=== PATIENT | female | born 1950 | race Caucasian/White ===

== ENCOUNTER → 2024-03-29 12:17 | Outpatient (REF) | payer MEDICARE, SELFPAY | LOC: HWRAD 12:17 | PROVIDERS: ATTENDING PHYSICIAN Student in an Organized Health Care Education/Training Program; FAMILY PHYSICIAN Family Medicine | DX: M79.672 Pain in left foot (principal) | CPT/HCPCS: 73700 ==

== ENCOUNTER → 2024-07-05 13:32 | Outpatient (REF) | payer MEDICARE, SELFPAY | LOC: RCS 13:32 | PROVIDERS: ATTENDING PHYSICIAN Family Medicine | DX: R06.02 Shortness of breath (principal) | CPT/HCPCS: 93005; 93306 ==

== ENCOUNTER → 2024-07-12 08:31 | Outpatient (REF) | payer MEDICARE, SELFPAY | LOC: RSP 08:31 | PROVIDERS: ATTENDING PHYSICIAN Family Medicine | DX: R06.02 Shortness of breath (principal) | CPT/HCPCS: 94727; 94729; 94060 ==

== ENCOUNTER 2024-11-19 07:19 | Emergency (ER) | payer MEDICARE, SELFPAY ==
[2024-11-19 07:31] VITALS: BP 149/75
--- NOTE | 2024-11-19 08:01 | ED.GENMED ---
History of Present Illness
General
Chief Complaint: Abdominal Pain
Source: patient
Exam Limitations: none
Time Seen by Provider: 11/19/24 07:49
History of Present Illness
History of Present Illness:
74-year-old female presents with abdominal discomfort and distention over the past 2 months. She has tried Prilosec over that time over a month time without any relief. She is seen by family doctor couple times and was scheduled for CT scan which
is a week from today. The pain has worsened. The pain is not pleuritic. Does not made worse with eating it is a constant pain and discomfort to both sides that radiates to the front. She is on MS Contin for her chronic back pain. She is moving
her bowels. No urinary symptoms. No vomiting chest pain or shortness of breath. No other complaints at this time
Past History
Past History
ED Past Medical History: Other (Chronic low back pain, lumbar DJD, chronic narcotic dependent) and Other (Migraine headaches)
ED Past Surgical History: Appendectomy, Gynecological (Tubal ligation) and Orthopedic (Lumbar surgeries 1999, 2000, 2006)
Social History
Tobacco: Non-smoker
Alcohol: None
Personal:
Living: with family
Employment: Retired
Family History
Family History: Other (Noncontributory)
Phy Exam
Physical Exam
Physical Exam:
General: Well-appearing female no acute respiratory distress
HEENT: Normocephalic atraumatic sclera anicteric neck is supple
Heart: Regular rate and rhythm no murmurs lungs: Clear no wheeze
Abdomen dorsalis soft slightly distended tender in the upper abdomen and epigastric area. Mild bilateral flank tenderness no lower quadrant tenderness normal bowel sounds
Extremities: No cyanosis or edema
Skin: Warm no rash
Course
Orders/Labs/Results
Orders:
Orders
11/19/24 08:00
CT Abd/pel W Iv And Oral Contr Urgent
Comment:
Reason For Exam: abdominal pain
Iohexol [Omnipaque] See Protocol PO NOW STA
11/19/24 08:02
Electrocardiogram (*1) Urgent
Reason for Study: Abdominal Pain
EKG- Treatment ONCE
11/19/24 08:39
Complete Blood Count/With Diff Urgent
Comprehensive Metabolic Panel Urgent
Lipase Urgent
Troponin I Urgent
11/19/24 10:16
Urinalysis Reflex To Culture Urgent
Date Specimen was Collected: 11/19/24
Time Specimen was Collected: 09:54
Abnormal Lab Results
11/19/24
08:39
MCHC 31.9 L g/dL
(33.0-37.0)
MPV 10.5 H fL
(7.4-10.4)
Glucose 102 H mg/dl
(70-99)
11/19/24 08:39
11/19/24 08:39
Vital Signs
Initial and Last Documented VS:
Initial Vital Signs
Pulse Resp BP Pulse Ox
67 18 149/75 97
11/19/24 07:31 11/19/24 07:31 11/19/24 07:31 11/19/24 07:31
Last Documented Vital Signs
Pulse Resp BP Pulse Ox
66 12 152/79 96
11/19/24 08:24 11/19/24 08:24 11/19/24 08:23 11/19/24 08:25
MDM/Problems Addressed
Differential Diagnosis Includes:
Upper abdominal and bilateral flank pain. Consider gastritis versus constipation versus bowel obstruction. She has had surgeries on her back but they have gone through her abdomen. No prior history of cholecystectomy. Symptoms have been
unrelieved with PPIs at home. Will check lipase to evaluate for pancreatitis.
Patient had an order for CT of her abdomen pelvis with oral and IV contrast this is to be performed in a week however will obtain a CT today as well as EKG and troponin.
*Critical Care Note
Total Time (30-74mins, 75-104mins- exclusive of procedures): Not Applicable
Update Note
Update Note:
Workup here essentially unremarkable with blood work CT scan and urinalysis. Patient has ongoing pain over the past 2 months but worsening. No acute indication for admission. Will contact GI team for rapid follow-up. Stable for discharge
otherwise
ED Attending Note
-
Portions of this chart may have been created with voice recognition software.� Occasional wrong word or��sound alike� substitutions may have occurred due to the inherent limitations of voice recognition software.
Discharge Plan
Departure
Patient Disposition: Home (Routine Discharge)
Date of Disposition: 11/19/24
Time of Disposition: 11:14
Patient with high blood pressure during this ER visit?: No
Discharge Problem:
Abdominal pain
Instructions: Abdominal Pain
Prescriptions:
No Action
morphine [MS Contin] 15 MG tablet extended release
15 mg PO BID
naproxen 500 MG tablet
500 mg PO PRN PRN (Reason: pain)
[place] 7.5/325:
1 tab PO TID
Referrals:
Teresa Pinto MD [Family Provider] -
Shayna Huertas MD [Active] -
Activity Restrictions/Additional Instructions:
Please return here for worsening symptoms. The GI team should call you to set up an appointment
Interventions
Interventions:
*Risk Screen - Suicide Last Done: 11/19/24 07:31
*General Assessment Last Done: 11/19/24 07:31
*Neglect/Abuse Screening Last Done: 11/19/24 07:31
ED- Fall Risk Assessment Last Done: 11/19/24 08:25
*ED COVID-19 Vaccine History Last Done: 11/19/24 08:25
[facility]-Ohuxmldk[facility] Assessment Last Done: 11/19/24 08:25
Discharge Date and Time
Print Language: NEPALESE
[2024-11-19 08:23] VITALS: BP 152/79
[2024-11-19 08:25] VITALS: BMI 29.1
[2024-11-19] MEDS: OMNIPAQUE 50 ML PO (08:30)
[2024-11-19 08:57] LABS: % Basophils 1.5 % (0-2); % Eosinophils 3.6 % (0-6); % Immature Granulocytes 0.4 % (0-0.5); % Lymphocytes 23.6 % (20.5-51.1); % Monocytes 8.9 % (1.7-9.3); Absolute Basophils 0.1 10^3/uL (0-0.2); Absolute Eosinophils 0.3 10^3/uL (0-0.7); Absolute Lymphocytes 1.7 10^3/uL (1.2-3.4); Absolute Monocytes 0.6 10^3/uL (0.1-0.6); Absolute Neutrophils 4.5 10^3/uL (1.4-6.5); Hemoglobin 13.4 g/dL (12.0-16.0); Mean Corp Hgb Conc. 31.9 g/dL (33.0-37.0); Mean Corpuscular Hgb 28.6 pg (27.0-31.0); Mean Corpuscular Volume 89.7 fL (81.0-99.0); Mean Platelet Volume 10.5 fL (7.4-10.4); Nucleated Red Blood Cells % 0 %; Platelet Count 326 10^3/uL (130-400); Red Blood Cell Count 4.68 10^6/uL (4.20-5.40); Red Cell Dist. Width 13.2 % (11.5-14.5); White Blood Cell Count 7.2 10^3/uL (4.8-10.8)
[2024-11-19 09:03] LABS: ALT (SGPT) 22 U/L (0-35); AST (SGOT) 22 U/L (14-36); Albumin 4.2 g/dl (3.5-5.0); Alkaline Phosphatase 82 U/L (38-126); Blood Urea Nitrogen 17 mg/dl (7-17); Calcium 9.7 mg/dl (8.4-10.2); Carbon Dioxide 27 mmol/L (22-30); Chloride 106 mmol/L (98-107); Estimated Creatinine Clearance 77 ml/min; Glucose 102 mg/dl (70-99); Lipase 57 U/L (23-300); Potassium 4.4 mmol/L (3.5-5.1); Sodium 142 mmol/L (135-145); Total Bilirubin 0.4 mg/dl (0.2-1.3); eGFR > 60.00
[2024-11-19 09:14] LABS: Troponin I < 0.012 ng/ml
[2024-11-19 10:34] LABS: Urine Albumin Negative (Neg - Trace); Urine Bilirubin Negative (Negative); Urine Character Clear (Clear); Urine Color Straw; Urine Glucose Negative (Negative); Urine Ketone Negative (Negative); Urine Leukocyte Negative (Negative); Urine Nitrite Negative (Negative); Urine Occult Blood Negative (Negative); Urine Specific Gravity 1.015 (<1.030); Urine Urobilinogen Negative (Neg - 1+)
== END 2024-11-19 11:31 | disposition home or self-care (01) ==
LOC: EMR 07:19
PROVIDERS: Physician Assistant; EMERGENCY PHYSICIAN Emergency Medicine; FAMILY PHYSICIAN Family Medicine
DX: R10.9 Unspecified abdominal pain (principal); Z90.49 Acquired absence of other specified parts of digestive tract; G89.29 Other chronic pain; M54.50 Low back pain, unspecified
CPT/HCPCS: 99284; 74177; 80053; 81003; 83690; 84484; 85025; 93005; Q9967

== ENCOUNTER → 2024-11-30 18:45 | Outpatient (REF) | payer MEDICARE, SELFPAY | LOC: MRI 18:45 | PROVIDERS: ATTENDING PHYSICIAN Family Medicine | DX: M54.16 Radiculopathy, lumbar region (principal) | CPT/HCPCS: 72148 ==

== ENCOUNTER 2024-12-12 08:14 | Inpatient (IN) | payer MEDICARE, SELFPAY ==
[2024-12-10 09:34] VITALS: BP 202/104
[2024-12-10 10:03] LABS: % Basophils 1.4 % (0-2); % Eosinophils 3.1 % (0-6); % Immature Granulocytes 0.2 % (0-0.5); % Lymphocytes 22.9 % (20.5-51.1); % Monocytes 8.2 % (1.7-9.3); % Neutrophils 64.2 % (42.2-75.2); Absolute Basophils 0.1 10^3/uL (0-0.2); Absolute Eosinophils 0.2 10^3/uL (0-0.7); Absolute Lymphocytes 1.5 10^3/uL (1.2-3.4); Absolute Monocytes 0.5 10^3/uL (0.1-0.6); Absolute Neutrophils 4.1 10^3/uL (1.4-6.5); Hematocrit 41.1 % (37.0-47.0); Hemoglobin 13.4 g/dL (12.0-16.0); Mean Corp Hgb Conc. 32.6 g/dL (33.0-37.0); Mean Corpuscular Hgb 28.9 pg (27.0-31.0); Mean Corpuscular Volume 88.6 fL (81.0-99.0); Mean Platelet Volume 10.2 fL (7.4-10.4); Nucleated Red Blood Cells % 0 %; Platelet Count 309 10^3/uL (130-400); Red Blood Cell Count 4.64 10^6/uL (4.20-5.40); Red Cell Dist. Width 13.2 % (11.5-14.5); White Blood Cell Count 6.4 10^3/uL (4.8-10.8)
[2024-12-10 10:12] LABS: ALT (SGPT) 16 U/L (0-35); AST (SGOT) 21 U/L (14-36); Albumin 4.3 g/dl (3.5-5.0); Alkaline Phosphatase 86 U/L (38-126); Blood Urea Nitrogen 16 mg/dl (7-17); Calcium 9.6 mg/dl (8.4-10.2); Carbon Dioxide 26 mmol/L (22-30); Chloride 106 mmol/L (98-107); Glucose 106 mg/dl (70-99); Lipase 72 U/L (23-300); Potassium 4.2 mmol/L (3.5-5.1); Sodium 141 mmol/L (135-145); Total Bilirubin 0.5 mg/dl (0.2-1.3); Total Protein 6.9 g/dl (6.3-8.2); eGFR > 60.00
[2024-12-10 11:01] VITALS: BMI 27.3
[2024-12-10 11:07] VITALS: BP 166/76
--- NOTE | 2024-12-10 14:23 | ED.GENMED ---
History of Present Illness
General
Chief Complaint: Abdominal Pain
Source: patient, records and spouse
Time Seen by Provider: 12/10/24 11:53
History of Present Illness
History of Present Illness:
74-year-old female with past medical history of chronic back pain presenting to the emergency department for evaluation of right flank/upper abdominal pain that has been ongoing and worsening over the last 3 months stating that she has been to this
emergency department as well as followed up with her primary care provider and GI but has not had any findings that would explain her pain and notes that she has had continued and worsening symptoms noting a relatively constant pain, or radiates
across the upper part of her abdomen, intermittently worse with eating and notes that she has had some loose stool and intermittent episodes of fecal incontinence. She does state her stool was black in color a couple of days ago but has not noticed
any blood. No fevers or infectious symptoms. Following her last visit to the ER here a little less than a month ago patient followed up with GI who she states told her they did not feel it was likely GI related and more likely related to her back
pain but patient notes she did receive a lumbar spine MRI with her primary care provider which only showed the degenerative changes. Patient does take chronic MS Contin due to her back pain but notes no changes to this medication recently. No
other concerns
Past History
Past History
ED Past Medical History: Other (Chronic low back pain, lumbar DJD, chronic narcotic dependent) and Other (Migraine headaches)
ED Past Surgical History: Appendectomy, Gynecological (Tubal ligation) and Orthopedic (Lumbar surgeries 1999, 2000, 2006)
Social History
Tobacco: Non-smoker
Alcohol: None
Drug: None
Personal:
Living: with family
Employment: Retired
Family History
Family History: Other (Noncontributory)
Review of Systems
Review of Systems
All Other Systems: ROS reviewed and negative except as documented in HPI and ROS
Phy Exam
Physical Exam
Physical Exam:
GENERAL: Alert , in no apparent distress, Tearful and upset
EYE: clear conjunctiva b/l
HEAD: NCAT
ENT: mmm.
CARDIAC: Regular rate and rhythm .
LUNGS: Clear breath sounds bilaterally, no acute respiratory distress, no wheezes/rales/rhonchi
ABDOMEN: Soft, RUQ pain across the upper abdomen, no r/g, no cvat,
NEUROLOGICAL: Alert and oriented
SKIN: Warm and dry, skin intact.
MUSCULOSKELETAL: well perfused.
PSYCH: Normal and appropriate interaction.
Scores
Heart Failure Risk
Heart Failure Risk Score: Not Applicable
Heart Score for Chest Pain Patients
STEMI patient?: Not applicable
Withdrawal Assessment of Alcohol
Withdrawal Assessment Completed?: Not applicable
Course
Orders/Labs/Results
Orders:
Orders
12/10/24 Breakfast
Clear Liquid
At Your Request: Limited Participation
12/10/24 09:50
Complete Blood Count/With Diff Urgent
Comprehensive Metabolic Panel Urgent
Lipase Urgent
12/10/24 13:22
US Abdomen Complete/Upper Urgent
Comment:
Reason For Exam: RUQ abd pain/epigastric abd pain
12/10/24 15:24
Mag Hydrox/Al Hydrox/Simeth [Maalox] 30 ml Phenobarb/Hyoscy/Atropine/Scop [] 10 ml Viscous Lidocaine 2% [Xylocaine Viscous Cup] 10 ml PO NOW
Pantoprazole [Protonix IV] 40 mg IV NOW STA
12/10/24 15:33
GASTROINTESTINAL CONSULT Routine
Consulting Provider: Ariela Iqbal
Was physician already notified: Yes
Reason for consult: abd pain
12/10/24 15:41
Mag Hydrox/Al Hydrox/Simeth [Maalox] 30 ml .ROUTE .STK-MED ONE
Phenobarb/Hyoscy/Atropine/Scop [] 10 ml .ROUTE .STK-MED ONE
Viscous Lidocaine 2% [Xylocaine Viscous Cup] 15 ml .ROUTE .STK-MED ONE
12/10/24 16:01
Admit/Transfer Patient As Directed
Co-Sign Provider:
Level of Care: Observation services
Assign to:: Medical/Surgical
Physician / Group: Kwadwo
Diagnosis: Abdominal Pain
PRN Pain Medication Management As Directed
May give lesser potent ordered pain med per pt: Yes
preference::
Protocol:: Medication orders for pain may be administered in a
manner that supports deferring to patient preference
when the pt is:
- Requesting an ordered lesser potent pain medication.
Least to most potent pain medications are defined
as: acetaminophen < NSAID < tramadol < opioids
(morphine, oxycodone, hydromorphone).
- Requesting a lesser dose of the same medication IF
ORDERED.
- Requesting a less intrusive route of administration
if both routes are prescribed by the provider (PO <
IV).
12/10/24 16:02
Code Status As Directed
Resuscitation Status: Full Code
12/10/24 17:12
Acetaminophen [Tylenol] 650 mg PO Q4HPRN PRN
HYDROmorphone [Dilaudid] 0.25 mg IV Q3HPRN PRN
Hydrocodone 5/APAP 325 [[place] 5/325] 1 tablet PO Q4HPRN PRN
Ondansetron Injectable [Zofran] 4 mg IV Q6HPRN PRN
12/10/24 17:12
Activity As Directed
Activity Level: Out of Bed-Early Mobility
With Assistance
Hemetest Stools As Directed
Comment: Notify Physician of any positive results; May Stop if Negative x 3
Pneumatic Compression Sleeves As Directed
Type: Knee high
Vital Signs As Directed
Frequency: Per unit guidelines
DX Deep Vein Thrombosis Video Routine
12/10/24 20:00
Lisinopril [Zestril] 10 mg PO BID
Morphine Sulfate Extended Rel. [Ms Contin (Extended Release)] 15 mg PO Q12
12/11/24 06:49
Basic Metabolic Panel IN AM
Complete Blood Count/No Diff IN AM
Magnesium IN AM
12/11/24 08:00
Pantoprazole [Protonix IV] 40 mg IV Q12
Abnormal Lab Results
12/10/24
09:50
MCHC 32.6 L g/dL
(33.0-37.0)
Glucose 106 H mg/dl
(70-99)
12/10/24 09:50
12/10/24 09:50
Vital Signs
Initial and Last Documented VS:
Initial Vital Signs
Pulse Resp BP Pulse Ox
71 18 202/104 98
12/10/24 09:34 12/10/24 09:34 12/10/24 09:34 12/10/24 09:34
Last Documented Vital Signs
Temp Pulse Resp BP Pulse Ox
98.1 F 82 20 107/59 97
12/11/24 15:00 12/11/24 15:00 12/11/24 15:00 12/11/24 15:00 12/11/24 15:00
MDM/Problems Addressed
Differential Diagnosis Includes:
GERD, gastritis, biliary colic, renal colic, PE considered however no chest pain, SOB, pleurisy. Exacerbation of chronic pain
MDM/Problems Addressed:
74-year-old female presenting to the emergency department for evaluation of continued upper abdominal pain without any specific etiologies. Symptoms been ongoing for approximately 3 months. She has had CT imaging, MRI, labs without any specific
findings. Noting her symptoms are worse. Followed up with GI and was frustrated with this visit as she felt she needed further workup at that GI did not seem to want to pursue. On arrival here patient is hypertensive however this is much improved
at time of my initial exam. Labs were initiated and all reassuring. I reviewed patient's CT and MRI imaging from recent past which did not show any significant abnormalities. Will repeat an ultrasound of the abdomen and discussed with GI
following as patient has had her further back imaging which GI felt was the likely cause of symptoms which at this point does not seem to be the case.
Chronic conditions affecting care: Other (Chronic pain)
*Radiology
Radiology exam reviewed: radiology read reviewed
*Pulse Oximetry
Patient hypoxic: no
*Critical Care Note
Total Time (30-74mins, 75-104mins- exclusive of procedures): Not Applicable
Data Reviewed
Review of Other/Old Records Reveals: Labs, Records and Radiology Studies
Source: patient, records, spouse and family
Patient Management
Discussion with other providers: Hospitalist
Escalation/DeEscalation of care consider admission/obs:
Patient with continued and intractable symptoms. Concern for patients worsening symptoms despite no obvious etiology. Given her continued pain and symptoms and failing outpatient treatments, plan to admit for continued eval and GI consult
ED Attending Note
-
Portions of this chart may have been created with voice recognition software.� Occasional wrong word or��sound alike� substitutions may have occurred due to the inherent limitations of voice recognition software.
Discharge Plan
Departure
Patient Disposition: Admit
Date of Disposition: 12/10/24
Time of Disposition: 15:25
Presentation/result/management discussed w/ accepting MD/DO: Hospitalist
Discharge Problem:
Abdominal pain, Nausea and vomiting
Interventions
Interventions:
*Risk Screen - Suicide Last Done: 12/10/24 11:01
*General Assessment Last Done: 12/10/24 11:01
*Neglect/Abuse Screening Last Done: 12/10/24 11:01
*Nursing Disposition Last Done: 12/10/24 17:13
PI-Xqnfjb-Nvjbceigcm Assessment Last Done: 12/10/24 11:01
Discharge Date and Time
Discharge Date/Time: 12/10/24 17:14
--- NOTE | 2024-12-10 15:36 | W.PN.UPDATE ---
Update Note
Progress Note Update
I saw and examined the patient.
The OSTEOLOGY TEACHER or PA's note was reviewed and I agree with the note.
Comment: 74-year-old female presents with a chief complaint of abdominal pain.
166/76, 66, 18, 99% RA
Gen: NAD, AAOx3.
Eyes: EOMI, PERRLA, no scleral icterus.
Neck: supple.
CV: RRR, +S1/S2, no m/r/g.
Resp: CTAB, no rales, wheezes, or rhonchi.
Abd: +BS, soft, NT to light palpation, ND
Skin: No rashes.
Neuro: CN 2-12 intact, non-focal.
Psych: Normal mood and affect.
Lab Results
12/10/24
09:50
WBC 6.4
RBC 4.64
Hgb 13.4
Hct 41.1
MCV 88.6
MCH 28.9
MCHC 32.6 L
RDW 13.2
Plt Count 309
MPV 10.2
Abs Immat Gran (auto) 0.0
Absolute Neuts (auto) 4.1
Absolute Lymphs (auto) 1.5
Absolute Monos (auto) 0.5
Absolute Eos (auto) 0.2
Absolute Basos (auto) 0.1
Immature Gran % 0.2
Neutrophils % 64.2
Lymphocytes % 22.9
Monocytes % 8.2
Eosinophils % 3.1
Basophils % 1.4
Nucleated RBC % 0
Sodium 141
Potassium 4.2
Chloride 106
Carbon Dioxide 26
BUN 16
Creatinine 0.7
eGFR > 60.00
Glucose 106 H
Calcium 9.6
Total Bilirubin 0.5
AST 21
ALT 16
Alkaline Phosphatase 86
Total Protein 6.9
Albumin 4.[address] A/P w/IV+PO 11/19/24: Prior appendectomy. No intestinal obstruction, free air or gross pericolonic inflammatory changes. Small simple hepatic cyst and right renal cyst. Additional suspected subcentimeter low-attenuation right lobe hepatic lesion
too small to characterize.
MRI L-spine 11/30/24: Postoperative and multilevel degenerative changes of the lumbar spine as detailed, worst at L3-4 where disc and facet disease contribute to mild spinal canal neural foraminal stenosis at this level. Findings are progressed
compared to prior exam 09/11/2014.
Abd U/S 12/10/24: No evidence of cholelithiasis, gallbladder wall thickening or biliary tract dilatation. Negative sonographic Haney's sign. Small simple left lobe hepatic cysts and small bilateral simple renal cysts. No focal abnormality of the
visualized proximal abdominal aorta. Mid and distal abdominal aorta significantly obscured, most likely by overlying bowel gas.
Abdominal pain:
-Extensive workup above unremarkable
-Afebrile, no leukocytosis, hemodynamically stable, LFTs normal
-c/s GI as pt likely needs EGD
[2024-12-10] MEDS: PROTONIX IV 40 MG IV (15:54)
[2024-12-10] MEDS: MAALOX 50 PO (15:54)
--- NOTE | 2024-12-10 16:15 | HPS.HSE ---
Family Physician
-
Family Physician: Teresa Pinto
Chief Complaint
-
Abdominal Pain
History of Present Illness
Patient is a 74-year-old female with past medical history of chronic pain with opioid dependence secondary to multiple spinal surgeries, and hypertension who presents with abdominal pain. Patient reports ongoing abdominal pain for the last several
months. She describes the pain as a burning sensation from the right flank around to her belly and. She notes her abdomen seems bloated, and describes a tenderness around the bellybutton region. She states she was treated with several courses of
Prilosec without any improvement in her pain. She had a CT scan at the end of October that did not reveal any significant findings that would explain her pain. She saw GI as an outpatient who felt that this was musculoskeletal in nature. She did
have a lumbar spine MRI earlier this month that showed degenerative changes. Patient reports pain is continued to worsen. She now notes significant pain with eating. She is only able to tolerate applesauce and some liquids at this point in time.
She denies fever, sweats or chills.
Medical History
Past Medical History
Past Medical History: Reports Other
Additional Past Medical History:
Essential Hypertension
Chronic Pain with Opioid Dependence
Migraine Headaches
Past Surgical History: Reports Other
Additional Past Surgical History:
Appendectomy
Tubal Ligation
Multiple Lumbar Spine Surgeries
Social History
Tobacco: Former Smoker (Quit about 30 years ago)
Alcohol: None
Family History
Family History: Not pertinent
Allergies / Home Medications
Allergies reflects when Allergies were last updated in [facility].
Home Medications with original date entered in [facility]
Allergy/Medication List:
Allergies
Allergy/AdvReac Type Severity Reaction Status Date / Time
Sulfa (Sulfonamide Allergy Unknown Unknown Verified 11/19/24 07:30
Antibiotics)
Cephalosporins Allergy Unknown Verified 11/19/24 07:30
Penicillins Allergy Unknown Verified 11/19/24 07:30
sumatriptan Allergy Unknown Verified 11/19/24 07:30
NOT.[id number] - Not Allergy Unknown Uncoded 04/06/23 21:35
Converted 48. See Text.
Home Medications
hydrocodone 5 mg-acetaminophen 325 mg tablet 1 tab PO DAILYPRN PRN severe pain ##0 09/11/14
benazepril 10 mg tablet 10 mg PO BID 12/10/24
oxycodone 10 mg tablet,crush resistant,extended release 12 hr (OxyContin) 10 mg PO Q8H 12/10/24
Review of Systems
-
A 12 point ROS was completed and negative except as noted: Yes
Constitutional: Denies Fever or Chills
Respiratory: Denies Cough or Trouble Breathing
Cardiac: Denies Chest Pain or Palpitations
Abdomen/GI: Reports See HPI; Denies Vomiting
: Denies Dysuria, Frequency or Incontinence
Physical Exam
Vital Signs
Vital Signs
Pulse Resp BP Pulse Ox
66 18 166/76 99
12/10/24 11:07 12/10/24 11:07 12/10/24 11:07 12/10/24 11:07
Physical Exam
General: Comfortable and Conversant
HEENT: Anicteric and Moist mucous membranes
Respiratory: Clear and Non Labored Respirations
Cardiac: S1/S2 and Regular Rhythm
GI: Soft and Tender (Epigastric and Periumbilical regions)
Rectal: Deferred by Provider
Musculoskeletal: No Clubbing, No Cyanosis and No Edema
Skin: Warm
Neuro: Awake, Alert, Oriented and Nonfocal/grossly intact
Psych: Calm
Laboratory Results
-
12/10/24 09:50
12/10/24 09:50
Laboratory Results
Total Bilirubin 0.5 mg/dl (0.2-1.3) 12/10/24 09:50
AST 21 U/L (14-36) 12/10/24 09:50
ALT 16 U/L (0-35) 12/10/24 09:50
Alkaline Phosphatase 86 U/L (38-126) 12/10/24 09:50
Lipase 72 U/L (23-300) 12/10/24 09:50
Data Reviewed
-
CT Scan: Report Reviewed by me
Ultrasound: Report Reviewed by me
MRI: Report Reviewed by me
Lab Data: Labs Reviewed by me
Old Records: Reviewed
Impression/Plan
-
Persistent Abdominal Pain
-Consult GI
-Allow clear liquids
-Start Protonix IV BID for possible gastritis/PUD
Essential Hypertension
-Continue benazepril with hold parameters
Chronic Pain with Opioid Dependence secondary to Multiple Lumbar Spine Surgeries
-Continue MS Contin as prior to admission
DVT proph: SCDs
Code Status: Full Code
[2024-12-10 16:41] VITALS: BP 158/86
[2024-12-10 17:21] VITALS: BP 132/91
[2024-12-10 20:14] VITALS: BP 163/81
[2024-12-10] MEDS: MS CONTIN (EXTENDED RELEASE) 15 MG PO (20:14)
[2024-12-10] MEDS: ZESTRIL 10 MG PO (20:14)
[2024-12-10 23:00] VITALS: BP 151/82
[2024-12-10] MEDS: NORCO 5/325 1 TABLET PO (23:45)
[2024-12-11 06:00] VITALS: BMI 27.8
[2024-12-11 07:00] VITALS: BP 106/72
[2024-12-11] MEDS: MS CONTIN (EXTENDED RELEASE) 15 MG PO ×2 (07:59→22:13)
[2024-12-11] MEDS: ZESTRIL PO (08:00)
[2024-12-11] MEDS: NSS (PRESERVATIVE FREE) 10 ML IV ×2 (08:00→22:13)
[2024-12-11] MEDS: PROTONIX IV 40 MG IV ×2 (08:01→22:13)
[2024-12-11 08:55] LABS: Hematocrit 41.2 % (37.0-47.0); Hemoglobin 13.3 g/dL (12.0-16.0); Mean Corp Hgb Conc. 32.3 g/dL (33.0-37.0); Mean Corpuscular Hgb 29.2 pg (27.0-31.0); Mean Corpuscular Volume 90.4 fL (81.0-99.0); Mean Platelet Volume 10.7 fL (7.4-10.4); Platelet Count 300 10^3/uL (130-400); Red Blood Cell Count 4.56 10^6/uL (4.20-5.40); Red Cell Dist. Width 13.2 % (11.5-14.5); White Blood Cell Count 6.8 10^3/uL (4.8-10.8)
[2024-12-11 09:29] LABS: Blood Urea Nitrogen 16 mg/dl (7-17); Carbon Dioxide 27 mmol/L (22-30); Chloride 104 mmol/L (98-107); Estimated Creatinine Clearance 59 ml/min; Glucose 84 mg/dl (70-99); Magnesium 2.2 mg/dl (1.6-2.3); Potassium 4.2 mmol/L (3.5-5.1); Sodium 141 mmol/L (135-145); eGFR > 60.00
--- NOTE | 2024-12-11 09:31 | CON.GI ---
Addendum entered and electronically signed by Tori Silva MD 12/11/24 13:02:
I saw and examined the patient.
The PAVER OPERATOR's note was reviewed and I agree with the note.
-right sided abdominal pain with radiation
-diarrhea then constipation
-bloating
-black stool after pepto use
-intermittent NSAID use
-hx endometrial thickening
-chronic back pain with multiple spinal surgeries on chronic narcotics
plan
EGD in a.m. to rule out possible upper GI etiology for her symptoms. If negative will suggest further workup for back pain as per medical team
Continue PPI
N.p.o. after midnight
Addendum entered and electronically signed by LESLIE Moran 12/11/24 10:35:
add miralax daily-- may need adjustment pending obs series
Original Note:
Consultation
-
Date/Time Consultation Requested: 12/10/24 1530
Date/Time Consultation Performed: 12/11/24 0930
Requesting Provider: Alec Burkett MD
Performing Provider: LESLIE Xiong, Tori Silva MD
Reason for Consultation: abdominal pain
Medical History
Chief Complaint / HPI
Chief Complaint: abdominal pain
History of Present Illness:
Pt is a 74yo with hx HTN, chronic back pain on chronic narcotics, multiple spinal surgeries, migraines, appe, tubal with onset of abdominal pain for several months with treatment with Prilosec without improvement. She completed CT a/p in October
with no obstruction, free air or inflammatory changes. She also completed lumbar MRI imaging with DDD worse at L3-4. She was seen by Dr. Iqbal with concern for spinal etiology and started on Dicyclomine which caused dizziness. She was also
recommended pelvic US which is scheduled this week with hx endometrial thickening. She also admits to bowel irregularities with diarrhea then constipation. She did take some pepto bismol and also noted dark stools. She continued with right sided
pain and now presents for further evaluation. She has not had follow up with spine surgery since onset. She admits Aleve use 2-3 dose per week. No prior EGD and colonoscopy normal 2017.
Pt is admits back pain began in August. Pain is right sided with radiation to mid abdomen. Pain is 6/10 and up to 9/10 at time. Pain is constant and worse some time with eating during meal and better with walking. She admits to 10 lbs wt
loss with ongoing symptom and has not changed her chronic pain meds since onset. she also admits to bloating with She otherwise denies dysphagia, odynophagia, GERD, nausea, vomiting, or red blood in stools. Labs stable on admission with hbg
13.3. US completed since admission with no cholelithiasis, gallbladder wall thickening or biliary tract dilatation. Negative sonographic Haney's sign. simple renal cysts. No focal abnormality of the visualized proximal abdominal aorta. Mid and
distal abdominal aorta significantly obscured, most likely by overlying bowel gas.
Past Medical History
Past Medical History: HTN and Other (chronic low back pain, lumbar DJD, chronic narcotic use, migraines, )
Past Surgical History: Appendectomy, Orthopedic (spine surgery 1999, 2000, 2006) and Other (tubal ligation)
Social History
Tobacco: Non-Smoker
Alcohol: None
Drug: None
Personal:
Living: With Family
Employment: Retired
Family History
Family History: Other (mother when pt was infant of childbirth complication, father in plane accident when pt was 10)
Allergies / Home Medications
Allergy/AdvReac Type Severity Reaction Status Date / Time
Sulfa (Sulfonamide Allergy Unknown Unknown Verified 11/19/24 07:30
Antibiotics)
Cephalosporins Allergy Unknown Verified 11/19/24 07:30
Penicillins Allergy Unknown Verified 11/19/24 07:30
sumatriptan Allergy Unknown Verified 11/19/24 07:30
NOT.[id number] - Not Allergy Unknown Uncoded 04/06/23 21:35
Converted 48. See Text.
�Medication �Instructions �Recorded
hydrocodone 5 mg-acetaminophen 325 1 tab PO DAILYPRN PRN severe pain 09/11/14
mg tablet ##0
benazepril 10 mg tablet 10 mg PO BID Blood Pressure 12/10/24
oxycodone 10 mg tablet,crush 10 mg PO Q8H Pain 12/10/24
resistant,extended release 12 hr
(OxyContin)
Review of Systems
-
History Source: Patient
Constitutional: Reports Weight Loss
EENT: Reports No Symptoms
Respiratory: Reports No Symptoms
Cardiac: Reports Chest Pain
Abdomen/GI: Reports Abdominal Pain (right mid abdomen with wrap around pain), Diarrhea, Constipated and Black Stools (after pepto use )
: Reports No Symptoms
Musculoskeletal: Reports Other (hx chronic back pain on chronic narcotics )
Skin: Reports No Symptoms
Neurological: Reports Dizzy (with dicycomine use )
Endocrine: Reports No Symptoms
Hematologic/Lymphatic: Reports No Symptoms
Vital Signs
Temp Pulse Resp BP Pulse Ox
97.7 F 61 18 105/68 98
12/11/24 07:00 12/11/24 07:00 12/11/24 07:00 12/11/24 08:00 12/11/24 07:00
Physical Exam
Exam
General: Well Developed, Well Nourished and Other (some distress with ongoing back pain)
HEENT: Normocephalic and Anicteric
Respiratory: Clear
Cardiac: Regular Rhythm
GI: Soft, Non Distended, Tender (right mid abdomen worse with palpation) and Other (large vertical left abd scar from prior lumbar surgery )
Musculoskeletal: No Clubbing and No Cyanosis
Skin: Warm and Dry
Neuro: Awake, Alert and AO x 3
Psych: Calm
Results
WBC 6.8 10^3/uL (4.8-10.8) 12/11/24 06:49
Hgb 13.3 g/dL (12.0-16.0) 12/11/24 06:49
Hct 41.2 % (37.0-47.0) 12/11/24 06:49
MCV 90.4 fL (81.0-99.0) 12/11/24 06:49
Plt Count 300 10^3/uL (130-400) 12/11/24 06:49
Absolute Neuts (auto) 4.1 10^3/uL (1.4-6.5) 12/10/24 09:50
Sodium 141 mmol/L (135-145) 12/11/24 06:49
Potassium 4.2 mmol/L (3.5-5.1) 12/11/24 06:49
Chloride 104 mmol/L (98-107) 12/11/24 06:49
Carbon Dioxide 27 mmol/L (22-30) 12/11/24 06:49
BUN 16 mg/dl (7-17) 12/11/24 06:49
Creatinine 0.8 mg/dL (0.6-1.0) 12/11/24 06:49
Calcium 9.0 mg/dl (8.4-10.2) 12/11/24 06:49
Total Bilirubin 0.5 mg/dl (0.2-1.3) 12/10/24 09:50
AST 21 U/L (14-36) 12/10/24 09:50
ALT 16 U/L (0-35) 12/10/24 09:50
Alkaline Phosphatase 86 U/L (38-126) 12/10/24 09:50
Lipase 72 U/L (23-300) 12/10/24 09:50
Diagnostic Image Results:
12/10/24 US Abdomen Complete/Upper
IMPRESSION: No evidence of cholelithiasis, gallbladder wall thickening or biliary tract dilatation. Negative sonographic Haney's sign.
Small simple left lobe hepatic cysts and small bilateral simple renal cysts.
No focal abnormality of the visualized proximal abdominal aorta. Mid and distal abdominal aorta significantly obscured, most likely by overlying bowel gas.
11/30/24 MRI OF THE LUMBAR SPINE WITHOUT CONTRAST
Postoperative and multilevel degenerative changes of the lumbar spine as detailed, worst at L3-4 where disc and facet disease contribute to mild spinal canal neural foraminal stenosis at this level. Findings are progressed compared to prior exam
09/11/2014.
11/19/24- CT A/p IV and oral
Prior appendectomy.
No intestinal obstruction, free air or gross pericolonic inflammatory changes.
Small simple hepatic cyst and right renal cyst. Additional suspected subcentimeter low-attenuation right lobe hepatic lesion too small to characterize.
Prior GI Procedures:
EGD: none
Colonoscopy: 2017
The perianal and digital rectal examinations were normal.
The entire examined colon appeared normal.
good prep repeat 10 years
Assessment / Plan
-
Pt is a 74yo with hx HTN, chronic back pain on chronic narcotics, multiple spinal surgeries, migraines, appe, tubal with onset of abdominal pain for several months with treatment with Prilosec without improvement. She completed CT a/p in October
with no obstruction, free air or inflammatory changes. She also completed lumbar MRI imaging with DDD worse at L3-4. She was seen by Dr. Iqbal with concern for spinal etiology and started on Dicyclomine which caused dizziness. She was also
recommended pelvic US which is scheduled this week with hx endometrial thickening. She also admits to bowel irregularities with diarrhea then constipation. She did take some pepto bismol and also noted dark stools. She continued with right sided
pain and now presents for further evaluation. She has not had follow up with spine surgery since onset. She admits Aleve use 2-3 dose per week. No prior EGD and colonoscopy normal 2017.
-right sided abdominal pain with radiation
-diarrhea then constipation
-bloating
-black stool after pepto use
-intermittent NSAID use
-hx endometrial thickening
-chronic back pain with multiple spinal surgeries on chronic narcotics
other med problems:
-appe
-tubal
-migraines
PLAN:
Etiology of pain related to constipation with chronic narcotic use, PUD/GI bleeding with dark stool- may be pepto related, thoracic spine related issues as follow right T8-10 dermatome, INSURANCE AGENT related vs other
check obstruction series today
plan for EGD in AM
cont PPI BID
clear diet ok for low residue advance then NPO in AM
reviewed with Dr. Burkett consider thoracic spine imaging
cont pain management per hospitalist
t/c US pelvis if work up neg-- she is schedule outpatient later this week
-
-
Thank you for consultation and allowing me to participate in the patient's care. Please call the director talent acquisition GI physician during the after hours with any questions or concerns.
[2024-12-11 10:16] LABS: Hepatitis C Antibody Negative (Negative)
--- NOTE | 2024-12-11 10:45 | W.PN.HOSP.TC ---
Today's Communication/Plan
-
see bold, d/c tomorrow if EGD unremarkable
Assessment / Plan
Assessment / Plan
Gen: NAD, AAOx3.
Eyes: EOMI, PERRLA, no scleral icterus.
Neck: supple.
CV: remains RRR, +S1/S2, no m/r/g.
Resp: remains CTAB, no rales, wheezes, or rhonchi.
Abd: +BS, soft, diffuse TTP, ND
Skin: No rashes.
Neuro: CN 2-12 intact, non-focal.
Psych: Normal mood and affect.
CT A/P w/IV+PO 11/19/24: Prior appendectomy. No intestinal obstruction, free air or gross pericolonic inflammatory changes. Small simple hepatic cyst and right renal cyst. Additional suspected subcentimeter low-attenuation right lobe hepatic lesion
too small to characterize.
MRI L-spine 11/30/24: Postoperative and multilevel degenerative changes of the lumbar spine as detailed, worst at L3-4 where disc and facet disease contribute to mild spinal canal neural foraminal stenosis at this level. Findings are progressed
compared to prior exam 09/11/2014.
Abd U/S 12/10/24: No evidence of cholelithiasis, gallbladder wall thickening or biliary tract dilatation. Negative sonographic Haney's sign. Small simple left lobe hepatic cysts and small bilateral simple renal cysts. No focal abnormality of the
visualized proximal abdominal aorta. Mid and distal abdominal aorta significantly obscured, most likely by overlying bowel gas.
OBST series: Moderate to large volume widespread colonic stool. Nonobstructive bowel gas pattern.
Abdominal pain:
-Extensive workup above unremarkable
-Afebrile, no leukocytosis, hemodynamically stable, LFTs normal
-Mag citrate x 1 for constipation
-GI following and I have requested that EDG be done this admission. As per discussion with Margaret Avery pt will have EGD tomorrow.
-should EGD be unremarkable pt should have MRI T-spine after d/c
Essential Hypertension
-Continue benazepril with hold parameters
Chronic Pain with Opioid Dependence secondary to Multiple Lumbar Spine Surgeries
-Continue MS Contin as prior to admission
FULL/SCDs
Anticipated Discharge: Within 24 hours
Subjective/Interval History
-
Date of Service: December 11, 2024
Still c/o abd pain.
Objective Data
-
Labs:
Laboratory Results
12/11/24
06:49
WBC 6.8
Hgb 13.3
Hct 41.2
Plt Count 300
Sodium 141
Potassium 4.2
Chloride 104
Carbon Dioxide 27
BUN 16
Creatinine 0.8
Glucose 84
Calcium 9.0
Vital Signs:
Vital Signs
Temp Pulse Resp BP Pulse Ox
97.7 F 61 18 105/68 98
12/11/24 07:00 12/11/24 07:00 12/11/24 07:00 12/11/24 08:00 12/11/24 07:00
I&O
12/10/24 12/11/24 12/12/24
06:59 06:59 06:59
Intake Total 480 / 480 480 / 480
Balance 480 / 480 480 / 480
[2024-12-11] MEDS: MIRALAX 17 GRAMS PO (11:38)
[2024-12-11] MEDS: CITROMA 300 ML PO (12:48)
[2024-12-11 15:00] VITALS: BP 107/59
--- NOTE | 2024-12-11 17:20 | CM ---
electrical construction project manager reviewed patient's chart and CONN letter provided to patient, patient lives with spouse in a multilevel home, patient is independent with adl's and ambulation, patient drives, home no needs when stable.
Patient is OBS, CONN letter completed and placed on chart.
PCP: Dr Pinto
Pharmacy: [facility]
[2024-12-11] MEDS: ZESTRIL 10 MG PO (22:13)
[2024-12-11 23:28] VITALS: BP 129/62
[2024-12-12] VITALS (8 sets, daily range): BP systolic 16–135; BP diastolic 58–80
[2024-12-12] MEDS: NORCO 5/325 1 TABLET PO ×2 (03:41→10:09)
[2024-12-12] MEDS: MIRALAX PO (08:08)
[2024-12-12] MEDS: MS CONTIN (EXTENDED RELEASE) 15 MG PO ×2 (08:08→20:19)
[2024-12-12] MEDS: NSS (PRESERVATIVE FREE) 10 ML IV ×2 (08:10→20:19)
[2024-12-12] MEDS: PROTONIX IV 40 MG IV ×2 (08:11→20:19)
[2024-12-12] MEDS: ZESTRIL PO (08:12)
--- NOTE | 2024-12-12 13:00 | W.PN.HOSP.TC ---
Today's Communication/Plan
-
MRI T-spine
HIDA scan
consideration for MRI/MRCP
standing bowel regimen
Assessment / Plan
Assessment / Plan
Gen: NAD, AAOx3.
Eyes: EOMI, PERRLA, no scleral icterus.
Neck: supple.
CV: remains RRR, +S1/S2, no m/r/g.
Resp: remains CTAB, no rales, wheezes, or rhonchi.
Abd: +BS, soft, diffuse TTP, ND
Skin: No rashes.
Neuro: CN 2-12 intact, non-focal.
Psych: Normal mood and affect.
CT A/P w/IV+PO 11/19/24: Prior appendectomy. No intestinal obstruction, free air or gross pericolonic inflammatory changes. Small simple hepatic cyst and right renal cyst. Additional suspected subcentimeter low-attenuation right lobe hepatic lesion
too small to characterize.
MRI L-spine 11/30/24: Postoperative and multilevel degenerative changes of the lumbar spine as detailed, worst at L3-4 where disc and facet disease contribute to mild spinal canal neural foraminal stenosis at this level. Findings are progressed
compared to prior exam 09/11/2014.
Abd U/S 12/10/24: No evidence of cholelithiasis, gallbladder wall thickening or biliary tract dilatation. Negative sonographic Haney's sign. Small simple left lobe hepatic cysts and small bilateral simple renal cysts. No focal abnormality of the
visualized proximal abdominal aorta. Mid and distal abdominal aorta significantly obscured, most likely by overlying bowel gas.
OBST series: Moderate to large volume widespread colonic stool. Nonobstructive bowel gas pattern.
pt is a 74 year old female
Abdominal pain--workup above unremarkable--EGD essentially WNL--will order HIDA scan for AM (functionality of GB may be issue not structural)--will order MRI T-spine--diarrhea could be overflow related to significant constipation--agree with
standing bowel regimen--MRI/MRCP may also be helpful
Essential Hypertension-Continue benazepril with hold parameters
Chronic Pain with Opioid Dependence secondary to Multiple Lumbar Spine Surgeries--Continue MS Contin as prior to admission
FULL/SCDs
Anticipated Discharge: 24 - 48 hours
Subjective/Interval History
-
Date of Service: December 12, 2024
pt had had abdominal pain/bloating/intermittent diarrhea since August--pt very frustrated, tearful that all studies negative
Objective Data
-
Vital Signs:
max temp for 24 hours
12/12/24
07:26
Temp 98.8 F
Vital Signs
Temp Pulse Resp BP Pulse Ox
97.7 F 78 15 123/58 95
12/12/24 09:03 12/12/24 09:30 12/12/24 09:30 12/12/24 09:30 12/12/24 09:30
I&O
12/11/24 12/12/24 12/13/24
06:59 06:59 06:59
Intake Total 480 / 480 1200 / 1200
Balance 480 / 480 1200 / 1200
Review of Systems
-
All other systems: Reviewed and negative
Abdomen/GI: Reports Abdominal Pain, Diarrhea, Black Stools and Other (bloating)
Physical Exam
-
General: Well Developed, Well Nourished and No Apparent Distress
HEENT: Normocephalic and Atraumatic
Respiratory: Clear to Auscultation; Negative Wheezes or Rhonchi
Cardiac: Regular Rhythm and S1/S2; Negative Murmur
GI: Soft, Nondistended, Normal Bowel Sounds and Tender (no guarding or rebound--RUQ)
Musculoskeletal: No Clubbing, No Cyanosis and No Edema
--- NOTE | 2024-12-12 15:58 | CM ---
Patient seen at bedside with physician. Patient tearful and concerned about continuing pain. Patient plan is for discharge home with patient . CM will continue to follow for discharge planning needs.
Plan; home with pending physician assessments.
[2024-12-12] MEDS: ATIVAN 0.5 MG IV (16:51)
[2024-12-12] MEDS: NSS (PRESERVATIVE FREE) 0.25 ML IV (16:52)
[2024-12-12] MEDS: ZESTRIL 10 MG PO (20:19)
[2024-12-13] MEDS: NORCO 5/325 1 TABLET PO (00:53)
[2024-12-13 07:00] VITALS: BP 135/73
[2024-12-13 08:08] LABS: Hemoglobin 12.7 g/dL (12.0-16.0); Mean Corp Hgb Conc. 31.8 g/dL (33.0-37.0); Mean Corpuscular Hgb 28.9 pg (27.0-31.0); Mean Corpuscular Volume 91.1 fL (81.0-99.0); Mean Platelet Volume 10.5 fL (7.4-10.4); Platelet Count 306 10^3/uL (130-400); Red Blood Cell Count 4.39 10^6/uL (4.20-5.40); Red Cell Dist. Width 13.2 % (11.5-14.5); White Blood Cell Count 6.8 10^3/uL (4.8-10.8)
[2024-12-13 08:32] LABS: ALT (SGPT) 16 U/L (0-35); AST (SGOT) 20 U/L (14-36); Albumin 3.9 g/dl (3.5-5.0); Alkaline Phosphatase 83 U/L (38-126); Blood Urea Nitrogen 16 mg/dl (7-17); Calcium 9.2 mg/dl (8.4-10.2); Carbon Dioxide 28 mmol/L (22-30); Chloride 105 mmol/L (98-107); Estimated Creatinine Clearance 64 ml/min; Glucose 96 mg/dl (70-99); Magnesium 2.4 mg/dl (1.6-2.3); Potassium 4.1 mmol/L (3.5-5.1); Sodium 142 mmol/L (135-145); Total Bilirubin 0.4 mg/dl (0.2-1.3); Total Protein 6.3 g/dl (6.3-8.2); eGFR > 60.00
--- NOTE | 2024-12-13 08:36 | W.PN.HOSP.TC ---
Today's Communication/Plan
-
d/c
Assessment / Plan
Assessment / Plan
Gen: NAD, AAOx3.
Eyes: EOMI, PERRLA, no scleral icterus.
Neck: supple.
CV: continues to remain RRR, +S1/S2, no m/r/g.
Resp: continues to remain CTAB, no rales, wheezes, or rhonchi.
Abd: +BS, soft, periumbilical TTP, ND
Skin: No rashes.
Neuro: CN 2-12 intact, non-focal.
Psych: Normal mood and affect.
CT A/P w/IV+PO 11/19/24: Prior appendectomy. No intestinal obstruction, free air or gross pericolonic inflammatory changes. Small simple hepatic cyst and right renal cyst. Additional suspected subcentimeter low-attenuation right lobe hepatic lesion
too small to characterize.
MRI L-spine 11/30/24: Postoperative and multilevel degenerative changes of the lumbar spine as detailed, worst at L3-4 where disc and facet disease contribute to mild spinal canal neural foraminal stenosis at this level. Findings are progressed
compared to prior exam 09/11/2014.
Abd U/S 12/10/24: No evidence of cholelithiasis, gallbladder wall thickening or biliary tract dilatation. Negative sonographic Haney's sign. Small simple left lobe hepatic cysts and small bilateral simple renal cysts. No focal abnormality of the
visualized proximal abdominal aorta. Mid and distal abdominal aorta significantly obscured, most likely by overlying bowel gas.
OBST series: Moderate to large volume widespread colonic stool. Nonobstructive bowel gas pattern.
MRI T-spine 12/12/24:
1. Mild multilevel discogenic degenerative disease in the thoracic and upper lumbar spine.
2. Moderate multilevel discogenic degenerative disease in the cervical spine.
3. Small multilevel disc herniations in the cervical spine.
4. Severe bilateral facet joint arthrosis in the cervical spine.
5. Severe calcific atherosclerotic plaque and mild fusiform aneurysmal dilatation of the descending thoracic aorta.
6. Multinodular thyroid goiter.
Chronic abdominal pain:
-extensive workup above unremarkable
-cont bowel regimen for constipation
-can continue w/u in outpt setting
-pt offered neurontin on day of d/c, refused
Other problems:
Essential Hypertension: cont ACEi
Chronic Pain with Opioid Dependence due to Multiple Lumbar Spine Surgeries: cont home MS Contin dosing
Pt's updated at bedside.
FULL/SCDs
Total time spent on d/c = 33 min. This included today's physical exam, progress note, review of laboratory and diagnostic data, preparation of discharge documents and prescriptions, and discussions about the pt's hospital course and discharge plan
with the patient and other medical technician involved in the patient's care.
Anticipated Discharge: Today
Subjective/Interval History
-
Date of Service: December 13, 2024
c/o persistent abd pain.
Objective Data
-
Labs:
Laboratory Results
12/13/24
07:09
WBC 6.8
Hgb 12.7
Hct 40.0
Plt Count 306
Sodium 142
Potassium 4.1
Chloride 105
Carbon Dioxide 28
BUN 16
Creatinine 0.8
Glucose 96
Calcium 9.2
Total Bilirubin 0.4
AST 20
ALT 16
Alkaline Phosphatase 83
Vital Signs:
Vital Signs
Temp Pulse Resp BP Pulse Ox
97.7 F 66 16 135/73 95
12/13/24 07:00 12/13/24 07:00 12/13/24 07:00 12/13/24 07:00 12/13/24 07:00
I&O
12/12/24 12/13/24 12/14/24
06:59 06:59 06:59
Intake Total 1200 / 1200 840 / 840
Balance 1200 / 1200 840 / 840
[2024-12-13] MEDS: MIRALAX PO (09:18)
[2024-12-13] MEDS: ZESTRIL 10 MG PO (09:18)
[2024-12-13] MEDS: MS CONTIN (EXTENDED RELEASE) 15 MG PO (09:18)
[2024-12-13] MEDS: PROTONIX IV 40 MG IV (09:19)
[2024-12-13] MEDS: NSS (PRESERVATIVE FREE) 10 ML IV (09:19)
--- NOTE | 2024-12-13 10:45 | CM ---
Caro is cleared for discharge to home today. will transport.
CONN previously given by CM.
Plan: Discharge to home with no identified needs.
--- NOTE | 2024-12-13 15:13 | W.DCSUMMARY ---
Discharge Summary
Discharge Data
Date of Admission: 12/12/24
Date of Discharge: 12/13/24
-
Pending Results: No
Hospital Course
Primary diagnoses:
Chronic abdominal pain
Secondary diagnoses:
Essential Hypertension
Chronic Pain with Opioid Dependence due to Multiple Lumbar Spine Surgeries
Consultants:
Gastroenterology
Imaging:
CT A/P w/IV+PO 11/19/24: Prior appendectomy. No intestinal obstruction, free air or gross pericolonic inflammatory changes. Small simple hepatic cyst and right renal cyst. Additional suspected subcentimeter low-attenuation right lobe hepatic lesion
too small to characterize.
MRI L-spine 11/30/24: Postoperative and multilevel degenerative changes of the lumbar spine as detailed, worst at L3-4 where disc and facet disease contribute to mild spinal canal neural foraminal stenosis at this level. Findings are progressed
compared to prior exam 09/11/2014.
Abd U/S 12/10/24: No evidence of cholelithiasis, gallbladder wall thickening or biliary tract dilatation. Negative sonographic Haney's sign. Small simple left lobe hepatic cysts and small bilateral simple renal cysts. No focal abnormality of the
visualized proximal abdominal aorta. Mid and distal abdominal aorta significantly obscured, most likely by overlying bowel gas.
OBST series: Moderate to large volume widespread colonic stool. Nonobstructive bowel gas pattern.
MRI T-spine 12/12/24:
1. Mild multilevel discogenic degenerative disease in the thoracic and upper lumbar spine.
2. Moderate multilevel discogenic degenerative disease in the cervical spine.
3. Small multilevel disc herniations in the cervical spine.
4. Severe bilateral facet joint arthrosis in the cervical spine.
5. Severe calcific atherosclerotic plaque and mild fusiform aneurysmal dilatation of the descending thoracic aorta.
6. Multinodular thyroid goiter.
EGD 12/12/24: Inlet patch was found in the upper third of the esophagus. Mild Gastritis. Biopsied. Normal examined duodenum.
Hospital course: 74-year-old female who presented with a chief complaint of ongoing abdominal pain as outlined in the H&P done on admission. On admission the patient was afebrile, had no leukocytosis, had normal LFTs, and was hemodynamically
stable. The patient had extensive imaging prior to admission and during admission as above. That imaging did not reveal an etiology for the patient's abdominal pain. She did receive magnesium citrate for constipation and was initiated on a bowel
regimen. She had an EGD that was unremarkable as above. She was discharged in medically stable condition to continue her workup in the outpatient setting. She was offered Neurontin on the day of discharge but refused.
Discharge Plan
-
Patient Disposition: Home (Routine Discharge)
Discharge Diagnosis/Procedures: chronic abdominal pain
Condition: Good
Diet: Low Sodium
Activity: As tolerated
Driving Restrictions: As prior to admission
Others Tests: should have HIDA scan WITH CCK (only done as outpt), script from PCP
Referrals:
Teresa Pinto MD [Family Provider] - in less than 1 week
Prescriptions:
New
polyethylene glycol 3350 17 gram Powder In Packet
17 g PO DAILY Qty: 0 0RF
morphine 15 mg Tablet Extended Release
15 mg PO Q12 Qty: 0 0RF
Continued
hydrocodone-acetaminophen 5-325 mg Tablet
1 tab PO DAILYPRN PRN (Reason: severe pain) Qty: 0
benazepril 10 mg Tablet
10 mg PO BID
Discontinued
oxycodone [OxyContin] 10 mg Tablet,Oral Only,Ext.Rel.12 Hr
10 mg PO Q8H
Discharge Orders:
Discharge Patient (As Directed); Ordered 12/13/24
Ordered By: Alec Burkett
Discharge Date and Time
Discharge Date/Time: 12/13/24 10:54
Print Language: ICELANDIC
== END 2024-12-13 10:54 | disposition home or self-care (01) | DRG 392 ==
LOC: 4 WEST ACU 08:14
PROVIDERS: Internal Medicine; Physician Assistant Medical; Student in an Organized Health Care Education/Training Program; ADMITTING PHYSICIAN Internal Medicine; EMERGENCY PHYSICIAN Emergency Medicine; FAMILY PHYSICIAN Family Medicine; OTHER PHYSICIAN Internal Medicine Gastroenterology
PROC: 0DB68ZX Excision of Stomach, Via Natural or Artificial Opening Endoscopic, Diagnostic (ICD-10-PCS; 2024-12-12)
DX: K29.70 Gastritis, unspecified, without bleeding (principal); F11.20 Opioid dependence, uncomplicated; I10 Essential (primary) hypertension; K22.89 Other specified disease of esophagus; G43.909 Migraine, unspecified, not intractable, without status migrainosus; G89.29 Other chronic pain; K59.00 Constipation, unspecified; K76.89 Other specified diseases of liver; N28.1 Cyst of kidney, acquired; Z87.891 Personal history of nicotine dependence; Z90.49 Acquired absence of other specified parts of digestive tract
CPT/HCPCS: 88305; 72146; 74022; 76700; 80048; 80053; 83690; 83735; 85025; 85027; 86803; 88342; 96374; 99285

== ENCOUNTER → 2024-12-20 13:30 | Outpatient (REF) | payer MEDICARE, SELFPAY | LOC: RAD 13:30 | PROVIDERS: ATTENDING PHYSICIAN Internal Medicine Gastroenterology; FAMILY PHYSICIAN Family Medicine | DX: R10.30 Lower abdominal pain, unspecified (principal) | CPT/HCPCS: 76856 ==

== ENCOUNTER → 2025-01-04 07:33 | Outpatient (REF) | payer MEDICARE, SELFPAY | LOC: RAD 07:33 | PROVIDERS: ATTENDING PHYSICIAN Family Medicine | DX: R10.9 Unspecified abdominal pain (principal); G89.29 Other chronic pain | CPT/HCPCS: 78227; A9537; J2805 ==

== ENCOUNTER → 2025-03-29 10:42 | Outpatient (REF) | payer MEDICARE, SELFPAY | LOC: RAD 10:42 | PROVIDERS: ATTENDING PHYSICIAN Family Medicine; FAMILY PHYSICIAN Family Medicine | DX: J98.01 Acute bronchospasm (principal); R09.89 Other specified symptoms and signs involving the circulatory and respiratory systems | CPT/HCPCS: 71046 ==